=== PATIENT | female | born 1980 | race American Indian/Alaskan Native ===

== ENCOUNTER 2016-07-26 01:18 | Emergency (ER) | payer MEDICAID ==
[2016-07-26 02:29] LABS: Basophils % (Auto) 0.8 % (0.0-1.8); Eosinophils % (Auto) 2.1 % (0.0-4.3); Hematocrit 34.7 % (30.3-42.9); Hemoglobin 11.5 gm/dl (10.1-14.3); Mean Corpuscular HGB Conc 33 % (30-34); Mean Corpuscular Hemoglobin 29 pg (28-32); Mean Corpuscular Volume 86 fl (79-97); Platelet Count 194 K/mm3 (140-440); Red Blood Count 4.03 M/mm3 (3.65-5.03); Red Cell Distribution Width 14.7 % (13.2-15.2); White Blood Count 7.6 K/mm3 (4.5-11.0)
[2016-07-26 02:34] LABS: Anion Gap 16 mmol/L; Blood Urea Nitrogen 12 mg/dL (7-17); Calcium 9.1 mg/dL (8.4-10.2); Carbon Dioxide 24 mmol/L (22-30); Chloride 103.1 mmol/L (98-107); Glucose 148 mg/dL (65-100); Potassium 3.5 mmol/L (3.6-5.0); Sodium 140 mmol/L (137-145)
--- NOTE | 2016-07-26 03:13 | Emergency Department Report ---
ED General Adult HPI - General Chief complaint: High BP Stated complaint: HIGH B/P Time Seen by Provider: 07/26/16 02:59 Source: patient, EMS, RN notes reviewed Mode of arrival: Stretcher Limitations: No Limitations - History of Present Illness Initial comments: This is a 36-year-old female. She is previously unknown to me. She reports that she does not have a primary care doctor. She does not have any medical problems that she is aware of. Reflux the hospital by EMS for shortness of breath. As per EMS documentation, patient is found to be hypertensive at 1250 5 in the morning, 190/132. As per EMS documentation, patient complains of shortness of breath. EMS documents that the patient complained of shortness of breath upon waking up. Patient indicated that she was sleeping, and when she woke up she started feeling shortness of breath. There is no chest pain. There is no nausea, vomiting or diaphoresis. There is no leg pain. There is no leg swelling. Does not take control tablets. No recent trips greater than 4 hours. No recent hospital admissions. The patient indicates that she had 2 episodes over the past 2 weeks of almost passing out. These episodes are not associated with sudden or thunderclap headache. Patient cannot describe exacerbating or relieving factors. Her symptoms are essentially resolved at this time. The patient indicates that she does not consume illegal drugs or tobacco or cocaine. -: Gradual Severity scale (0 -10): 0 Consistency: intermittent Improves with: none Worsens with: none Associated Symptoms: shortness of breath. denies: confusion, chest pain, cough - Related Data Home Medications Medication Instructions Recorded Confirmed Last Taken No Known Home Medications [No 07/26/16 07/26/16 Unknown Reported Home Medications] Allergies Allergy/AdvReac Type Severity Reaction Status Date / Time No Known Allergies Allergy Unverified 07/26/16 01:46 ED Review of Systems ROS: Stated complaint: HIGH B/P Other details as noted in HPI Constitutional: denies: fever Eyes: denies: vision change ENT: denies: epistaxis Respiratory: shortness of breath Cardiovascular: denies: chest pain Gastrointestinal: denies: abdominal pain, nausea, diarrhea Genitourinary: denies: urgency, dysuria, discharge Musculoskeletal: denies: back pain, joint swelling, arthralgia Skin: denies: rash, lesions Neurological: denies: headache, weakness, paresthesias Psychiatric: anxiety ED Past Medical Hx - Past Medical History Hx Hypertension: Yes Hx Psychiatric Treatment: Yes (Anxiety) - Surgical History Past Surgical History?: No - Social History Smoking Status: Never Smoker Substance Use Type: None - Medications Home Medications: Home Medications Medication Instructions Recorded Confirmed Last Taken Type No Known Home Medications [No 07/26/16 07/26/16 Unknown History Reported Home Medications] ED Physical Exam - General Limitations: No Limitations General appearance: alert, in no apparent distress - Head Head exam: Present: atraumatic, normocephalic - Eye Eye exam: Present: normal appearance, PERRL, EOMI. Absent: nystagmus - ENT ENT exam: Present: normal exam, normal orophraynx, mucous membranes moist, normal external ear exam - Neck Neck exam: Present: normal inspection, full ROM. Absent: tenderness, meningismus - Respiratory Respiratory exam: Present: normal lung sounds bilaterally. Absent: respiratory distress, wheezes, rales, rhonchi, stridor, chest wall tenderness, accessory muscle use, decreased breath sounds, prolonged expiratory - Cardiovascular Cardiovascular Exam: Present: regular rate, normal rhythm, normal heart sounds. Absent: bradycardia, tachycardia, irregular rhythm, systolic murmur, diastolic murmur, rubs, gallop - GI/Abdominal GI/Abdominal exam: Present: soft, normal bowel sounds. Absent: distended, tenderness, guarding, rebound, rigid, pulsatile mass - Extremities Exam Extremities exam: Present: normal inspection, full ROM, normal capillary refill. Absent: tenderness, pedal edema, joint swelling, calf tenderness - Back Exam Back exam: Present: normal inspection, full ROM. Absent: tenderness, CVA tenderness (R), CVA tenderness (L), muscle spasm, paraspinal tenderness, vertebral tenderness - Neurological Exam Neurological exam: Present: alert, oriented X3, normal gait (no past pointing. Normal gait. Normal tandem gait.), other (Extraocular movements intact. Tongue midline. No facial droop. Facial sensation intact to light touch in the V1, V2, V3 distribution bilaterally. 5 and 5 strength in 4 extremities.. Sensation is intact to light touch in 4 extremities.). Absent: motor sensory deficit - Psychiatric Psychiatric exam: Present: normal affect, normal mood - Skin Skin exam: Present: warm, dry, intact, normal color. Absent: rash ED Course Vital Signs 07/26/16 07/26/16 07/26/16 01:35 01:45 02:29 Temperature 98.3 F Pulse Rate 102 H 88 74 Respiratory 16 18 16 Rate Blood Pressure 162/123 Blood Pressure 162/123 150/112 147/109 [Left] O2 Sat by Pulse 100 100 95 Oximetry 07/26/16 07/26/16 04:00 04:44 Temperature Pulse Rate 78 Respiratory 16 Rate Blood Pressure Blood Pressure 134/106 138/98 [Left] O2 Sat by Pulse Oximetry - Reevaluation(s) Reevaluation #1: 07/26/16 05:24 differential diagnosis: Arrhythmia, structural cardiac disease, acute coronary syndrome, pulmonary embolus, hypertensive urgency, incidental hypertension, nonspecific shortness of breath, obstructive sleep apnea, obesity hypoventilation syndrome Assessment and plan: 36-year-old female with complaint of shortness of breath upon waking up, and near syncope. She is low risk by well's criteria, and has no pulmonary embolus or DVT risk factors. She is low risk by PACO score, and low risk by heart Square. In the ER, she is somewhat hypertensive, but not especially hypertensive. She has no chest pain. She walks with a steady gait, and has no cerebellar signs. Her EKG is abnormal with a left axis deviation, left ventricular hypertrophy, nonspecific T-wave abnormalities, incomplete right bundle branch block. There is no prior EKG available for comparison. One troponin is negative, a second troponin is ordered, given the complaints of near syncope, shortness of breath and left axis deviation, a d-dimer was ordered , came back elevated, and a CT scan of the chest is ordered. Reevaluation #2: CT scan of the chest is negative. She has been observed in the ER for a prolonged period of time. She reports no episodes of shortness of breath, syncope or near syncope. She has been resting quite comfortably. Troponins are negative 2. She is instructed as to the importance of close outpatient follow-up with either cardiology or primary care doctor. She will be discharged at this time. Return precautions are extensively reviewed. 07/26/16 06:02 ED Medical Decision Making - Lab Data Result diagrams: 07/26/16 02:04 07/26/16 02:04 Vital Signs 04/23/17 04/23/17 04/23/17 01:35 01:45 02:29 Temperature 98.3 F Pulse Rate 102 H 88 74 Respiratory 16 18 16 Rate Blood Pressure 162/123 Blood Pressure 162/123 150/112 147/109 [Left] O2 Sat by Pulse 100 100 95 Oximetry 07/26/16 07/26/16 04:00 04:44 Temperature Pulse Rate 78 Respiratory 16 Rate Blood Pressure Blood Pressure 134/106 138/98 [Left] O2 Sat by Pulse Oximetry Lab Results 07/26/16 07/26/16 07/26/16 Range/Units 02:04 02:04 03:54 WBC 7.6 (4.5-11.0) K/mm3 RBC 4.03 (3.65-5.03) M/mm3 Hgb 11.5 (10.1-14.3) gm/dl Hct 34.7 (30.3-42.9) % MCV 86 (79-97) fl MCH 29 (28-32) pg MCHC 33 (30-34) % RDW 14.7 (13.2-15.2) % Plt Count 194 (140-440) K/mm3 Lymph % (Auto) 45.5 H (13.4-35.0) % [place] % (Auto) 6.6 (0.0-7.3) % Eos % (Auto) 2.1 (0.0-4.3) % Baso % (Auto) 0.8 (0.0-1.8) % Lymph # 3.5 (1.2-5.4) K/mm3 [place] # 0.5 (0.0-0.8) K/mm3 Eos # 0.2 (0.0-0.4) K/mm3 Baso # 0.1 (0.0-0.1) K/mm3 Seg Neutrophils % 45.0 (40.0-70.0) % Seg Neutrophils # 3.4 (1.8-7.7) K/mm3 PT (12.2-14.9) Sec. INR (0.87-1.13) D-Dimer (0-234) ng/mlDDU Sodium 140 (137-145) mmol/L Potassium 3.5 L (3.6-5.0) mmol/L Chloride 103.1 (98-107) mmol/L Carbon Dioxide 24 (22-30) mmol/L Anion Gap 16 mmol/L BUN 12 (7-17) mg/dL Creatinine 0.8 (0.7-1.2) mg/dL Estimated GFR > 60 ml/min BUN/Creatinine Ratio 15.00 % Glucose 148 H (65-100) mg/dL Calcium 9.1 (8.4-10.2) mg/dL Troponin T (0.00-0.029) ng/mL NT-Pro-B Natriuret Pep (0-450) pg/mL HCG, Quant (0-4) mIU/mL Urine Color TNR Urine Turbidity TNR Urine pH TNR Ur Specific Corea TNR Urine Protein TNR Urine Glucose (UA) TNR Urine Ketones TNR Urine Blood TNR Urine Nitrite TNR Ur Reducing Substances TNR Urine Bilirubin TNR Urine Ictotest TNR Urine Urobilinogen TNR Ur Leukocyte Esterase TNR Urine WBC (Auto) TNR Urine RBC (Auto) TNR U Epithel Cells (Auto) TNR Urine Bacteria (Auto) TNR Urine WBC Clumps TNR Ur Transition Epith Cell TNR Ur Renal Epithelial Cell TNR Calcium Carbonate Cryst TNR Calcium Phosphate Cryst TNR Calcium Oxalate Crystal TNR Cystine Crystals TNR Uric Acid Crystals TNR Triple Phos Crystals TNR Tyrosine Crystals TNR Other Crystals TNR Amorphous Crystals TNR Epithelial Casts TNR Fatty Casts TNR Hyaline Casts TNR Granular Casts TNR Waxy Casts TNR Broad Casts TNR RBC Casts TNR WBC Casts TNR Other Casts TNR Urine Mucus TNR Urine Trichomonas TNR Ur Yeast w Hyphae TNR Urine Yeast (Budding) TNR Urine Sperm TNR Urine Opiates Screen Urine Methadone Screen Ur Barbiturates Screen Ur Phencyclidine Scrn Ur Amphetamines Screen U Benzodiazepines Scrn Urine Cocaine Screen U Marijuana (THC) Screen 07/26/16 07/26/16 07/26/16 Range/Units 03:54 04:10 04:10 WBC (4.5-11.0) K/mm3 RBC (3.65-5.03) M/mm3 Hgb (10.1-14.3) gm/dl Hct (30.3-42.9) % MCV (79-97) fl MCH (28-32) pg MCHC (30-34) % RDW (13.2-15.2) % Plt Count (140-440) K/mm3 Lymph % (Auto) (13.4-35.0) % [place] % (Auto) (0.0-7.3) % Eos % (Auto) (0.0-4.3) % Baso % (Auto) (0.0-1.8) % Lymph # (1.2-5.4) K/mm3 [place] # (0.0-0.8) K/mm3 Eos # (0.0-0.4) K/mm3 Baso # (0.0-0.1) K/mm3 Seg Neutrophils % (40.0-70.0) % Seg Neutrophils # (1.8-7.7) K/mm3 PT 12.4 (12.2-14.9) Sec. INR 0.93 (0.87-1.13) D-Dimer 254.51 H (0-234) ng/mlDDU Sodium (137-145) mmol/L Potassium (3.6-5.0) mmol/L Chloride (98-107) mmol/L Carbon Dioxide (22-30) mmol/L Anion Gap mmol/L BUN (7-17) mg/dL Creatinine (0.7-1.2) mg/dL Estimated GFR ml/min BUN/Creatinine Ratio % Glucose (65-100) mg/dL Calcium (8.4-10.2) mg/dL Troponin T < 0.010 (0.00-0.029) ng/mL NT-Pro-B Natriuret Pep 74.35 (0-450) pg/mL HCG, Quant (0-4) mIU/mL Urine Color Urine Turbidity Urine pH Ur Specific Corea Urine Protein Urine Glucose (UA) Urine Ketones Urine Blood Urine Nitrite Ur Reducing Substances Urine Bilirubin Urine Ictotest Urine Urobilinogen Ur Leukocyte Esterase Urine WBC (Auto) Urine RBC (Auto) U Epithel Cells (Auto) Urine Bacteria (Auto) Urine WBC Clumps Ur Transition Epith Cell Ur Renal Epithelial Cell Calcium Carbonate Cryst Calcium Phosphate Cryst Calcium Oxalate Crystal Cystine Crystals Uric Acid Crystals Triple Phos Crystals Tyrosine Crystals Other Crystals Amorphous Crystals Epithelial Casts Fatty Casts Hyaline Casts Granular Casts Waxy Casts Broad Casts RBC Casts WBC Casts Other Casts Urine Mucus Urine Trichomonas Ur Yeast w Hyphae Urine Yeast (Budding) Urine Sperm Urine Opiates Screen Presumptive negative Urine Methadone Screen Presumptive negative Ur Barbiturates Screen Presumptive negative Ur Phencyclidine Scrn Presumptive negative Ur Amphetamines Screen Presumptive negative U Benzodiazepines Scrn Presumptive negative Urine Cocaine Screen Presumptive negative U Marijuana (THC) Screen Presumptive negative 07/26/16 Range/Units 04:10 WBC (4.5-11.0) K/mm3 RBC (3.65-5.03) M/mm3 Hgb (10.1-14.3) gm/dl Hct (30.3-42.9) % MCV (79-97) fl MCH (28-32) pg MCHC (30-34) % RDW (13.2-15.2) % Plt Count (140-440) K/mm3 Lymph % (Auto) (13.4-35.0) % [place] % (Auto) (0.0-7.3) % Eos % (Auto) (0.0-4.3) % Baso % (Auto) (0.0-1.8) % Lymph # (1.2-5.4) K/mm3 [place] # (0.0-0.8) K/mm3 Eos # (0.0-0.4) K/mm3 Baso # (0.0-0.1) K/mm3 Seg Neutrophils % (40.0-70.0) % Seg Neutrophils # (1.8-7.7) K/mm3 PT (12.2-14.9) Sec. INR (0.87-1.13) D-Dimer (0-234) ng/mlDDU Sodium (137-145) mmol/L Potassium (3.6-5.0) mmol/L Chloride (98-107) mmol/L Carbon Dioxide (22-30) mmol/L Anion Gap mmol/L BUN (7-17) mg/dL Creatinine (0.7-1.2) mg/dL Estimated GFR ml/min BUN/Creatinine Ratio % Glucose (65-100) mg/dL Calcium (8.4-10.2) mg/dL Troponin T (0.00-0.029) ng/mL NT-Pro-B Natriuret Pep (0-450) pg/mL HCG, Quant < 2 (0-4) mIU/mL Urine Color Urine Turbidity Urine pH Ur Specific Corea Urine Protein Urine Glucose (UA) Urine Ketones Urine Blood Urine Nitrite Ur Reducing Substances Urine Bilirubin Urine Ictotest Urine Urobilinogen Ur Leukocyte Esterase Urine WBC (Auto) Urine RBC (Auto) U Epithel Cells (Auto) Urine Bacteria (Auto) Urine WBC Clumps Ur Transition Epith Cell Ur Renal Epithelial Cell Calcium Carbonate Cryst Calcium Phosphate Cryst Calcium Oxalate Crystal Cystine Crystals Uric Acid Crystals Triple Phos Crystals Tyrosine Crystals Other Crystals Amorphous Crystals Epithelial Casts Fatty Casts Hyaline Casts Granular Casts Waxy Casts Broad Casts RBC Casts WBC Casts Other Casts Urine Mucus Urine Trichomonas Ur Yeast w Hyphae Urine Yeast (Budding) Urine Sperm Urine Opiates Screen Urine Methadone Screen Ur Barbiturates Screen Ur Phencyclidine Scrn Ur Amphetamines Screen U Benzodiazepines Scrn Urine Cocaine Screen U Marijuana (THC) Screen - EKG Data When compared to previous EKG there are: previous EKG unavailable 07/26/16 05:26 EKG demonstrates normal sinus, left axis deviation, left ventricular hypertrophy , Q waves noted in 1 and aVL, incomplete right bundle branch block, not morphologically consistent with STEMI, there is no prior EKG available for comparison - Radiology Data Radiology results: report reviewed, image reviewed interpreted by me: X-ray of the chest is negative for acute disease. CT scan of the chest was negative for pulmonary embolus Critical care attestation.: If time is entered above; I have spent that time in minutes in the direct care of this critically ill patient, excluding procedure time. ED Disposition Clinical Impression: Near syncope, Elevated blood pressure Is pt being admited?: No Does the pt Need Aspirin: No Condition: Stable Instructions: Hypertension (ED), Near Syncope (ED) Additional Instructions: Laboratory studies were essentially unremarkable. Vital signs indicated market hypertension, and abnormal EKG without prior for comparison. I recommend that you follow up with either her primary care doctor or flight test supervisor within the next 3-[address] Altamirano is a primary care doctor. Doctors Patricia and Jose are both local employment specialist. I recommend that you do not drive a car or operate motor vehicles unless cleared by either a primary care doctor or flight test supervisor. Return to the ER right away with fevers or chills, chest pain or worsened shortness of breath, intractable nausea or vomiting, new, worsening or different symptoms. Referrals: PRIMARY CARE, [Primary Care Provider] - 3-5 Days AUGIE ALTAMIRANO MD [Staff Physician] - 3-5 Days SUSAN CHIRINOS MD [Staff Physician] - 3-5 Days QUANG REID MD [Staff Physician] - 3-5 Days
[2016-07-26 04:32] LABS: INR 0.93 (0.87-1.13)
[2016-07-26 04:33] LABS: Bilirubin,Urine TNR (Negative); Blood,Urine TNR (Negative); Ketones,Urine TNR mg/dL (Negative); Leukocyte Esterase,Urine TNR (Negative); Nitrite,Urine TNR (Negative); PH,Urine TNR (5.0-7.0); Protein,Urine TNR mg/dL (Negative); RBC,Urine TNR /HPF (0.0-6.0); Urobilinogen,Urine TNR mg/dL (<2.0); WBC,Urine TNR /HPF (0.0-6.0)
[2016-07-26 04:34] LABS: Bacteria,Urine TNR /HPF (Negative); Fatty Casts,Urine TNR /LPF; Granular Casts,Urine TNR /LPF; Renal Epithelial Cells,Urine TNR /LPF; Uric Acid Crystals,Urine TNR
[2016-07-26 04:35] LABS: Mucus,Urine TNR /HPF; Red Blood Cell Casts,Urine TNR /LPF; Sperm,Urine TNR /HPF (NP); Trichomonas,Urine TNR /HPF; Waxy Casts,Urine TNR /LPF
[2016-07-26] MEDS ORDERED: NACL 0.9% 1000 ML 1,000 ML IV ONE (04:47)
[2016-07-26] MEDS ORDERED: NACL ONE (05:17)
--- NOTE | 2016-07-26 05:42 | Cat Scan Report ---
FINAL REPORT PROCEDURE: CT ANGIO CHEST TECHNIQUE: Computerized tomographic angiography of the chest was performed after the IV injection of iodinated nonionic contrast including image processing. The image data was postprocessed using 2-dimensional multiplanar reformatted (MPR) and 3-dimensional (MIP and/or volume rendered) techniques. HISTORY: dyspnea near syncope COMPARISON: No prior studies are available for comparison. FINDINGS: Heart and pericardium: Normal. Thoracic aorta: Normal. Pulmonary vasculature: Normal. Lymph nodes: No enlarged thoracic lymph nodes. Lungs: The lungs are clear. No infiltrate, effusion or pneumothorax. The central airway is patent. Pleural space: No effusion, thickening, or pneumothorax. Musculoskeletal structures: No significant abnormality. Upper abdominal structures: No significant abnormality. IMPRESSION: There is no evidence of pulmonary arterial emboli. The lungs are clear without infiltrate, effusion or pneumothorax.
[2016-07-26 06:51] LABS: Urine Drugs of Abuse Note TNR
[2016-07-26 07:39] VITALS: BP 148/88
--- NOTE | 2016-07-26 09:49 | XRay Report ---
ROUTINE CHEST, TWO VIEWS: HISTORY: Dyspnea. The trachea, heart, mediastinal contour, lung corrales and bony thorax are unremarkable. IMPRESSION: Unremarkable chest x-ray.
== END 2016-07-26 07:39 | disposition home or self-care (01) ==
LOC: ED 01:18
DX: R55 Syncope and collapse (principal); I10 Essential (primary) hypertension; F41.9 Anxiety disorder, unspecified
CPT/HCPCS: 36415; 71020; 71275; 80048; 80307; 81001; 83880; 84484; 84702; 85025; 85379; 85610; 93005; 93010; 96360; 99285; J7030; Q9967